=== PATIENT | female | born 1965 | race Caucasian/White ===

== ENCOUNTER 2017-06-19 05:38 | Emergency (ER) | payer SELFPAY ==
[2017-06-19] MEDS ORDERED: BENADRYL ONE (06:18)
[2017-06-19] MEDS ORDERED: BENADRYL IV ONE (06:34)
[2017-06-19] MEDS ORDERED: NACL 0.9% 1000 ML 2,000 ML IV ONE (07:29)
--- NOTE | 2017-06-19 07:34 | Emergency Department Report ---
ED General Adult HPI - General Chief complaint: Allergic Reaction Stated complaint: ALLERGIC REACTION Time Seen by Provider: 06/19/17 07:16 Source: patient, RN notes reviewed Mode of arrival: Ambulatory Limitations: Language Barrier (this provider speaks Samoan, and the patient's speaks Icelandic. They do not request a csr retail, and patient is okay with the translating.) - History of Present Illness Initial comments: This is a 52-year-old female who was previously unknown to this provider. The patient presents to the ER with new onset skin redness since 3:00 in the morning. The patient had hives on the chest and arms. Patient denies known medication or food allergies that she is aware of, she has been taking amoxicillin intimately for the past 2 weeks for some chronic dental issues, but reports having taken his medicine for years without issue. She can't recall the type of food that she could, she thinks it was beef, she is uncertain if it was properly fresh, and believes that there was an insect in it. There is no headache, neck pain, chest pain, abdominal pain or shortness of breath. There are no irritative or obstructive urinary symptoms, there is no intraoral pain or discomfort, there is no vaginal discomfort, there is no rectal discomfort, patient denies indwelling tampon device. -: Gradual Location: face, chest, back, abdomen, left, right, upper extremity, lower extremity Radiation: non-radiation Consistency: constant Improves with: medication Worsens with: none Associated Symptoms: rash, other (itching) - Related Data Previous Rx's Medication Instructions Recorded Last Taken Type Chlorhexidine Mouthwash [Peridex] 15 ml MM BID #1 bottle 06/19/17 Unknown Rx EPINEPHrine [Epipen 2-Lio] 0.3 mg IM DAILY PRN #2 ml 06/19/17 Unknown Rx Famotidine [Pepcid] 20 mg PO BID #10 tablet 06/19/17 Unknown Rx diphenhydrAMINE [Benadryl] 50 mg PO Q8HR PRN #20 capsule 06/19/17 Unknown Rx predniSONE [Deltasone] 40 mg PO QDAY #8 tab 06/19/17 Unknown Rx Allergies Allergy/AdvReac Type Severity Reaction Status Date / Time No Known Allergies Allergy Unverified 06/19/17 06:34 ED Review of Systems ROS: Stated complaint: ALLERGIC REACTION Other details as noted in HPI Constitutional: denies: fever ENT: denies: throat pain, epistaxis, congestion Respiratory: denies: cough Cardiovascular: denies: chest pain Gastrointestinal: denies: abdominal pain, vomiting Genitourinary: denies: dysuria Musculoskeletal: denies: back pain, arthralgia, myalgia Skin: as per HPI, lesions Neurological: denies: headache Psychiatric: anxiety ED Past Medical Hx - Past Medical History Previous Medical History?: Yes Hx Hypertension: Yes - Surgical History Past Surgical History?: No - Social History Smoking Status: Never Smoker - Medications Home Medications: Home Medications Medication Instructions Recorded Confirmed Last Taken Type Chlorhexidine Mouthwash [Peridex] 15 ml MM BID #1 bottle 06/19/17 Unknown Rx EPINEPHrine [Epipen 2-Lio] 0.3 mg IM DAILY PRN #2 ml 06/19/17 Unknown Rx Famotidine [Pepcid] 20 mg PO BID #10 tablet 06/19/17 Unknown Rx diphenhydrAMINE [Benadryl] 50 mg PO Q8HR PRN #20 capsule 06/19/17 Unknown Rx predniSONE [Deltasone] 40 mg PO QDAY #8 tab 06/19/17 Unknown Rx ED Physical Exam - General Limitations: Language Barrier General appearance: alert, anxious - Head Head exam: Present: atraumatic, normocephalic - Eye Eye exam: Present: normal appearance, EOMI. Absent: nystagmus - ENT ENT exam: Present: normal exam, normal orophraynx, mucous membranes moist, normal external ear exam, other (chronic poor dentalgia noted, no obvious redness, pus or streaking. No desquamation noted, no stridor, no dysphonia, no elevation of the base of the tongue.) - Neck Neck exam: Present: normal inspection, full ROM. Absent: tenderness, meningismus - Respiratory Respiratory exam: Present: normal lung sounds bilaterally. Absent: respiratory distress, wheezes, rales, rhonchi, stridor, chest wall tenderness, accessory muscle use, decreased breath sounds, prolonged expiratory - Cardiovascular Cardiovascular Exam: Present: normal rhythm, tachycardia, normal heart sounds. Absent: bradycardia, irregular rhythm, systolic murmur, diastolic murmur, rubs, gallop - GI/Abdominal GI/Abdominal exam: Present: soft, normal bowel sounds. Absent: distended, tenderness, guarding, rebound, rigid, pulsatile mass - Extremities Exam Extremities exam: Present: normal inspection, full ROM, normal capillary refill. Absent: pedal edema, joint swelling, calf tenderness - Back Exam Back exam: Present: normal inspection, full ROM. Absent: tenderness, CVA tenderness (R), CVA tenderness (L), muscle spasm, paraspinal tenderness, vertebral tenderness - Neurological Exam Neurological exam: Present: alert, other (Extraocular movements intact. Tongue midline. No facial droop. Facial sensation intact to light touch in the V1, V2 , V3 distribution bilaterally. 5 and 5 strength in 4 extremities.. Sensation is intact to light touch in 4 extremities.). Absent: motor sensory deficit - Psychiatric Psychiatric exam: Present: normal affect, normal mood - Skin Skin exam: Present: rash, other (diffuse blanching erythema noted on the arms, chest, abdomen, back. There is no streaking or crepitus. The compartments are soft.) ED Course Vital Signs 06/19/17 06/19/17 06/19/17 05:52 07:29 07:30 Temperature 98.1 F Pulse Rate 122 H 101 H 105 H Respiratory 18 16 20 Rate Blood Pressure 119/80 Blood Pressure [Left] O2 Sat by Pulse 100 98 97 Oximetry 06/19/17 06/19/17 06/19/17 07:40 07:50 08:00 Temperature Pulse Rate 92 H 96 H 97 H Respiratory 17 16 18 Rate Blood Pressure Blood Pressure [Left] O2 Sat by Pulse 96 96 98 Oximetry 06/19/17 06/19/17 06/19/17 08:10 08:20 08:30 Temperature Pulse Rate 91 H 95 H 96 H Respiratory 15 16 16 Rate Blood Pressure Blood Pressure [Left] O2 Sat by Pulse 97 96 96 Oximetry 06/19/17 06/19/17 06/19/17 08:50 09:03 09:10 Temperature Pulse Rate 105 H Respiratory 16 16 Rate Blood Pressure Blood Pressure [Left] O2 Sat by Pulse 100 98 98 Oximetry 06/19/17 06/19/17 09:20 09:29 Temperature 99.1 F Pulse Rate 95 H 89 Respiratory 19 16 Rate Blood Pressure Blood Pressure 102/62 [Left] O2 Sat by Pulse 98 100 Oximetry - Reevaluation(s) Reevaluation #1: 06/19/17 08:06 Differential diagnosis: Allergic reaction, erythroderma, urinary tract infection , dehydration, renal insufficiency, liver insufficiency Assessment and plan: 52-year-old female with diffuse erythroderma, patient denies indwelling devices or tampons, unlikely to be toxic shock, no mucosal involvement on exam or by history, somewhat tachycardic. Rash appears to be more erythroderma in nature, blanching, confluent, will give 2 L of IV fluid, check basic laboratory studies including urinalysis, and give the allergy cocktail. Patient will be observed. Reevaluation #2: 06/19/17 09:32 Tachycardia resolved. Tolerating liquid feeds. No airway issues at this time. Laboratory studies unremarkable. Rash appears improved. Patient will be discharged at this time. Return precautions reviewed. ED Medical Decision Making - Lab Data Result diagrams: 06/19/17 07:39 06/19/17 07:39 Vital Signs 06/19/17 05:52 Temperature 98.1 F Pulse Rate 122 H Respiratory 18 Rate Blood Pressure 119/80 O2 Sat by Pulse 100 Oximetry Critical care attestation.: If time is entered above; I have spent that time in minutes in the direct care of this critically ill patient, excluding procedure time. ED Disposition Clinical Impression: Rash Disposition: DC-01 TO HOME OR SELFCARE Is pt being admited?: No Does the pt Need Aspirin: No Condition: Stable Instructions: Acute Rash (ED) Additional Instructions: Discontinue amoxicillin antibiotic. Take the Pepcid medication, prednisone steroid, Benadryl as directed for the next or to 5 days. Use epinephrine pen only if the patient develops inability to speak, inability to breathe, swelling of the mouth, swelling of the tongue, passing out or loss of consciousness. If any of these symptoms develop, please contact 911 right away and return to the ER soon as possible. Follow up with a dentist within the next 2 weeks. Use the chlorhexidine mouthwash as directed, and instead of the antibiotic amoxicillin. Follow up with a primary care doctor within the next month. Dr. Altman is a local primary care doctor. The [facility] is a local dental clinic. Return to the ER right away with fevers, chills, chest pain, shortness of breath, confusion, inability to speak, inability to breathe, loss of consciousness. Suspenda el antibitico amoxicilina. [place] el medicamento Pepcid, prednisona esteroide, Benadryl segn lo indicado para el siguiente o hasta 5 larson. Use epinefrina slo si el paciente desarrolla incapacidad para hablar, incapacidad para respirar, hinchazn de la boca, hinchazn de la lengua, desmayo o prdida del conocimiento. Si alguno de estos sntomas se desarrolla, comunquese de inmediato con el 911 y regrese al ER lo antes posible. Seguimiento con un dentista dentro de las prximas 2 semanas. Utilice el enjuague bucal de clorhexidina brooke se indica, y en lugar del antibitico amoxicilina. Karl un seguimiento con un mdico de atencin primaria dentro del mes siguiente. El Dr. Altman es un mdico local de atencin primaria. [facility]. Vuelva al ER de inmediato con fiebres, escalofros, dolor en el pecho, dificultad para respirar, confusin, incapacidad para hablar, incapacidad para respirar, prdida del conocimiento. Prescriptions: Chlorhexidine Mouthwash [Peridex] 15 ml MM BID #1 bottle diphenhydrAMINE [Benadryl] 50 mg PO Q8HR PRN #20 capsule PRN Reason: Allergic Reaction EPINEPHrine [Epipen 2-Lio] 0.3 mg IM DAILY PRN #2 ml PRN Reason: Allergic Reaction Famotidine [Pepcid] 20 mg PO BID #10 tablet predniSONE [Deltasone] 40 mg PO QDAY #8 tab Referrals: PRIMARY CARE, [Primary Care Provider] - 3-5 Days KATHY CLARK MD [Staff Physician] - 3-5 Days CLAUDIO ALTMAN MD [Staff Physician] - 3-5 Days [facility] [Outside] - 3-5 Days
[2017-06-19] MEDS ORDERED: PEPCID IV ONE (08:07)
[2017-06-19 08:10] LABS: Hemoglobin 14.4 gm/dl (10.1-14.3); Mean Corpuscular HGB Conc 34 % (30-34); Mean Corpuscular Hemoglobin 30 pg (28-32); Mean Corpuscular Volume 89 fl (79-97); Platelet Count 167 K/mm3 (140-440); Red Blood Count 4.74 M/mm3 (3.65-5.03); Red Cell Distribution Width 13.2 % (13.2-15.2); White Blood Count 8.7 K/mm3 (4.5-11.0)
[2017-06-19 08:14] LABS: Alanine Aminotransferase 18 units/L (7-56); Albumin 3.6 g/dL (3.9-5); Albumin/Globulin Ratio 0.9 %; Alkaline Phosphatase 172 units/L (35-129); Anion Gap 18 mmol/L; BUN/Creatinine Ratio 22; Blood Urea Nitrogen 13 mg/dL (7-17); Calcium 8.9 mg/dL (8.4-10.2); Carbon Dioxide 23 mmol/L (22-30); Chloride 99.6 mmol/L (98-107); Creatine Kinase 128 units/L (30-135); Glucose 272 mg/dL (65-100); Potassium 4.4 mmol/L (3.6-5.0); Sodium 136 mmol/L (137-145); Total Protein 7.5 g/dL (6.3-8.2)
[2017-06-19 08:15] LABS: Bilirubin,Direct < 0.2 mg/dL (0-0.2)
[2017-06-19 09:01] LABS: Bilirubin,Urine NEG (Negative); Blood,Urine NEG (Negative); Ketones,Urine TR mg/dL (Negative); Leukocyte Esterase,Urine NEG (Negative); Mucus,Urine FEW /HPF; Nitrite,Urine NEG (Negative); Protein,Urine <15 mg/dL mg/dL (Negative)
[2017-06-19 09:35] VITALS: BP 102/62
== END 2017-06-19 10:01 | disposition home or self-care (01) ==
LOC: ED 05:38
DX: R21 Rash and other nonspecific skin eruption (principal); I10 Essential (primary) hypertension
CPT/HCPCS: 36415; 80048; 80074; 81001; 82550; 85027; 96374; 96375; 99284; J1200; J2930; J7030